=== PATIENT | female | born 1960 | race American Indian/Alaskan Native ===

== ENCOUNTER 2020-12-24 08:26 | Outpatient (CLI) | payer OTHER ==
--- NOTE | 2020-12-24 10:20 | XRay Report ---
Right hip 2 views INDICATION: Right hip pain IMPRESSION: The right total hip arthroplasty appears grossly intact. No periprosthetic fracture or di slocation. Mild diffuse osteopenia. Signer Name: Morris Taylor MD Signed: 12/24/2020 10:16 AM Workstation Name: [id number]
--- NOTE | 2020-12-24 10:21 | XRay Report ---
Lumbar spine 3 views INDICATION: Low back pain without recent injury IMPRESSION: Severe multilevel discogenic and facet arthropathy of the mid and lower lumbar spine jamin cially at L4-L5 and L5-S1 where there is severe bilateral neural foraminal stenosis at both levels. T here is mild to moderate neural foraminal stenosis secondary degenerative changes at L2-L3 and L3-L4. Signer Name: Morris Taylor MD Signed: 12/24/2020 10:16 AM Workstation Name: [email or web address]
== END 2020-12-24 08:27 | disposition home or self-care (01) ==
LOC: XRAY 08:26
PROVIDERS: ATTEND Internal Medicine
DX: M47.816 Spondylosis without myelopathy or radiculopathy, lumbar region (principal); M48.061 Spinal stenosis, lumbar region without neurogenic claudication; M51.36 Other intervertebral disc degeneration, lumbar region; M85.851 Other specified disorders of bone density and structure, right thigh; Z96.641 Presence of right artificial hip joint
CPT/HCPCS: 72100